=== PATIENT | female | born 1990 | race Caucasian/White ===

== ENCOUNTER 2024-07-09 09:37 | Emergency (ER) | payer MEDICAID ==
[~2024-07-09] VITALS: Ht 154.9 cm; Wt 70.0 kg
[2024-07-09 09:47] VITALS: TEMP 36.8; O2SAT 99
[2024-07-09] MEDS ORDERED: CEL200 MT (10:19)
[2024-07-09 11:30] VITALS: BP 123/82; PULSE 62; RESP 16; O2SAT 100
== END 2024-07-09 11:34 | disposition home or self-care (01) ==
LOC: ER 09:58
DX: M54.40 Lumbago with sciatica, unspecified side (principal); Z90.49 Acquired absence of other specified parts of digestive tract
CPT/HCPCS: 72100; 81025; 99283